=== PATIENT | female | born 1995 | race Hispanic/Latino ===

== ENCOUNTER 2018-09-16 01:27 | Inpatient (IN) | payer BC, SELFPAY ==
--- OUTSIDE RECORDS SUMMARY | 2018-09-16 01:29 | XMS REPORT ---
:1995 [facility] Address [address] [place] [address] Care Team Providers Name Role Phone Unavailable Unavailable Unavailable Payers Payer Name Policy Type Policy Number Effective Date Expiration Date Problems This patient has no known problems. Allergies, Adverse Reactions, Alerts Allergy Allergy Status Severity Reaction(s) Onset Inactive Treating Comments Name Type Date Date Clinician No Known DA Active U 2018-03 Allergies -15 00:00:0 0 No Known DA Active U 2018-02 Allergies - 00:00:0 0 No Known DA Active U 2018-02 Allergies - 00:00:0 0 Medications This patient has no known medications.
[2018-09-16] MEDS ORDERED: ONDANSETRON 4 MG/2 ML VIAL ONE (03:08)
[2018-09-16] MEDS ORDERED: KETOROLAC 30 MG/ML INJ ONE (03:08)
[2018-09-16] MEDS ORDERED: NA CHLORIDE 0.9% 1,000 ML ONE (03:08)
[2018-09-16] MEDS ORDERED: FAMOTIDINE 20 MG/2 ML VIAL IV ONE (03:08)
[2018-09-16 03:15] LABS: Absolute Lymphocytes (CBC) 0.9 K/uL (0.7-4.9); Absolute Monocytes 0.9 K/uL (0.1-1.3); Absolute Neutrophil 6.2 K/uL (1.8-8.0); Basophils % 0.3 % (0-1.3); Eosinophils % 6.4 % (0-4.4); Hematocrit 37.3 % (36.0-45.0); Lymphocytes % 10.3 % (15.3-44.8); MPV 9.1 fL (7.6-11.3); Monocytes % 10.3 % (3.3-12.3); RBC Red Blood Cell Count 4.14 M/uL (3.86-4.86)
[2018-09-16 03:27] LABS: ALT/SGPT 28 U/L (12-78); AST/SGOT 11 U/L (15-37); Albumin 4.1 g/dL (3.4-5.0); Alkaline Phosphatase 59 U/L (45-117); BUN Blood Urea Nitrogen 8 mg/dL (7-18); Bicarbonate 27 mmol/L (21-32); Bilirubin Direct < 0.1 mg/dL (0-0.2); Bilirubin Total 0.3 mg/dL (0.2-1.0); Glucose Level 103 mg/dL (74-106); Lipase 72 U/L (73-393); Potassium 3.4 mmol/L (3.5-5.1); Protein, Total 8.2 g/dL (6.4-8.2); Sodium Level 139 mmol/L (136-145)
[2018-09-16 06:28] LABS: Urine Bacteria 20-50 /HPF (<20); Urine Culture Reflex Order REFLEXED; Urine Mucus 1+ /HPF (NONE SEEN)
--- NOTE | 2018-09-16 07:57 | EDPHYS ---
Physician Documentation [facility] Name: Crystal Carrillo Age: 22 yrs Sex: Female : 1995 Arrival Date: 09/16/2018 Time: 01:28 Bed 5 Private MD: ED Physician Aldo Patterson HPI: 09/16 06:37 This 22 yrs old Female presents to ER via Ambulatory with complaints of Fever, wa Body Aches. 06:37 The patient reports fever, not measured (subjective). Onset: The symptoms/episode wa began/occurred 2 day(s) ago. Modifying factors: there are no obvious modifying factors. Associated signs and symptoms: Pertinent positives: abdominal pain, decreased appetite, vomiting, Pertinent negatives: cough, sore throat. Severity of symptoms: At their worst the symptoms were moderate in the emergency department the symptoms are unchanged. The patient has not experienced similar symptoms in the past. The patient has not recently seen a physician. 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 - Social history:: Smoking status: Patient/guardian denies using tobacco, Patient/guardian denies using alcohol, street drugs. - Ebola Screening: : Patient negative for fever greater than or equal to 101.5 degrees Fahrenheit, and additional compatible Ebola Virus Disease symptoms Patient denies exposure to infectious person Patient denies travel to an Ebola-affected area in the 21 days before illness onset. - Family history:: not pertinent. - Hospitalizations: : No recent hospitalization is reported. ROS: 06:38 Constitutional: Negative for fever, chills, and weight loss, Eyes: Negative for injury, wa pain, redness, and discharge, ENT: Negative for injury, pain, and discharge, Neck: Negative for injury, pain, and swelling, Cardiovascular: Negative for chest pain, palpitations, and edema, Respiratory: Negative for shortness of breath, cough, wheezing, and pleuritic chest pain, Back: Negative for injury and pain, : Negative for injury, bleeding, discharge, and swelling, MS/Extremity: Negative for injury and deformity, Skin: Negative for injury, rash, and discoloration, Neuro: Negative for headache, weakness, numbness, tingling, and seizure. 06:38 Constitutional: Positive for body aches, chills, fatigue, fever, Negative for weight loss. 06:38 Abdomen/GI: Positive for abdominal pain, vomiting, Negative for diarrhea. 06:38 All other systems are negative. Exam: 06:39 Constitutional: This is a well developed, well nourished patient who is awake, alert, wa and in no acute distress. Head/Face: Normocephalic, atraumatic. Eyes: Pupils equal round and reactive to light, extra-ocular motions intact. Lids and lashes normal. Conjunctiva and sclera are non-icteric and not injected. Cornea within normal limits. Periorbital areas with no swelling, redness, or edema. ENT: Nares patent. No nasal discharge, no septal abnormalities noted. Tympanic membranes are normal and external auditory canals are clear. Oropharynx with no redness, swelling, or masses, exudates, or evidence of obstruction, uvula midline. Mucous membranes moist. Neck: Trachea midline, no thyromegaly or masses palpated, and no cervical lymphadenopathy. Supple, full range of motion without nuchal rigidity, or vertebral point tenderness. No Meningismus. Chest/axilla: Normal chest wall appearance and motion. Nontender with no deformity. No lesions are appreciated. Cardiovascular: Regular rate and rhythm with a normal S1 and S2. No gallops, murmurs, or rubs. Normal PMI, no JVD. No pulse deficits. Respiratory: Lungs have equal breath sounds bilaterally, clear to auscultation and percussion. No rales, rhonchi or wheezes noted. No increased work of breathing, no retractions or nasal flaring. Back: No spinal tenderness. No costovertebral tenderness. Full range of motion. Skin: Warm, dry with normal turgor. Normal color with no rashes, no lesions, and no evidence of cellulitis. MS/ Extremity: Pulses equal, no cyanosis. Neurovascular intact. Full, normal range of motion. Neuro: Awake and alert, GCS 15, oriented to person, place, time, and situation. Cranial nerves II-XII grossly intact. Motor strength 5/5 in all extremities. Sensory grossly intact. Cerebellar exam normal. Normal gait. Psych: Awake, alert, with orientation to person, place and time. Behavior, mood, and affect are within normal limits. 06:39 Abdomen/GI: Inspection: abdomen appears normal, Bowel sounds: normal, Palpation: moderate abdominal tenderness, in the right lower quadrant. Vital Signs: 01:54 BP 118 / 87; Pulse 127; Resp 20; Temp 99.1(O); Pulse Ox 97% on R/A; Weight 58.97 kg fc (R); Height 5 ft. 0 in. (152.40 cm) (R); Pain 6/10; 03:40 BP 122 / 76; Pulse 91; Resp 18; Temp 99.5(O); Pulse Ox 97% ; Pain 6/10; eb1 04:52 BP 122 / 79; Pulse 97; Resp 20; Temp 99.1(O); Pulse Ox 98% on R/A; Pain 6/10; eb1 07:06 BP 104 / 71; Pulse 66; Resp 18; Temp 99.2(TE); Pulse Ox 100% on R/A; hj 01:54 Body Mass Index 25.39 (58.97 kg, 152.40 cm) MDM: 02:25 Patient medically screened. ny 06:39 Differential diagnosis: viral Infection, bacterial infection, UTI, r/o acute appy. Data ny reviewed: vital signs, nurses notes. 06:41 Test interpretation: by ED physician or midlevel provider: labs noted for low K. wa otherwise wnl.. 07:53 Test interpretation: by ED physician or midlevel provider: CT abd/pelvis: read as Right ny lower quadrant mesenteric adenitis. . Response to treatment: the patient's symptoms have markedly improved after treatment. ED course: will cover with abx and give close f/u . 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 spoke with surgeon Dr. Harris. advised obs admit. NPO. ny will see pt. 09/16 01:55 Order name: Flu; Complete Time: 02:38 09/16 01:55 Order name: Strep; Complete Time: 02:38 09/16 02:43 Order name: Basic Metabolic Panel; Complete Time: 06:41 ny 09/16 02:43 Order name: CBC with Diff; Complete Time: 06:41 ny 09/16 02:43 Order name: Hepatic Function; Complete Time: 06:41 ny 09/16 02:43 Order name: Lipase; Complete Time: 06:41 ny 09/16 02:43 Order name: Urine Microscopic Only; Complete Time: 06:40 ny 09/16 03:15 Order name: Throat Culture [facility] 09/16 06:16 Order name: Urine Dipstick--Ancillary (enter results) [facility] 09/16 06:16 Order name: Urine --Ancillary (enter results) [facility] 09/16 06:30 Order name: Urine Culture [facility] 09/16 08:17 Order name: Basic Metabolic Panel [facility] 09/16 08:17 Order name: Basic Metabolic Panel [facility] 09/16 08:17 Order name: Lipase [facility] 09/16 02:43 Order name: IV Saline Lock; Complete Time: 03:07 ny 09/16 02:43 Order name: Labs collected and sent; Complete Time: 03:02 ny 09/16 02:43 Order name: Urine Dipstick-Ancillary (obtain specimen); Complete Time: 05:40 ny 09/16 02:43 Order name: Urine Test (obtain specimen); Complete Time: 05:40 ny 09/16 05:41 Order name: CT Abd/Pelvis - W/Contrast: IV only 09/16 08:17 Order name: Lipase [facility] 09/16 08:17 Order name: Liver (Hepatic) Function [facility] 09/16 08:17 Order name: Liver (Hepatic) Function [facility] 09/16 08:18 Order name: NPO EDNC Administered Medications: 03:06 Drug: NS 0.9% 1000 ml Route: IV; Rate: 1 bolus; Site: left antecubital; mg2 04:46 Follow up: Rate change 999 ml/hr; IV Status: Completed infusion; IV Intake: 1000ml eb1 03:06 Drug: Zofran 4 mg Route: IVP; Site: left antecubital; mg2 03:42 Follow up: Response: No adverse reaction eb1 03:43 Follow up: Response: Nausea is decreased eb1 03:06 Drug: Pepcid 20 mg Route: IVP; Site: left antecubital; mg2 03:43 Follow up: Response: No adverse reaction eb1 03:06 Drug: TORadol 30 mg Route: IVP; Site: left antecubital; mg2 03:43 Follow up: Response: Pain is decreased eb1 07:53 Drug: fentaNYL (PF) 25 mcg Route: IVP; Site: left antecubital; hj 08:03 Follow up: Response: No adverse reaction; Pain is decreased hj 08:09 Drug: Zosyn 3.375 grams Route: IVPB; Infused Over: 60 mins; Site: left antecubital; hj 08:59 Follow up: Response: No adverse reaction; IV Status: Completed infusion aa5 08:59 Drug: D5-1/2 NS 1000 ml Route: IV; Rate: 125 ml/hr; Site: left antecubital; aa5 08:59 Follow up: IV Status: Infusion continued upon admission aa5 Disposition: 09/16/18 08:07 Hospitalization ordered by Dwight Harris for Observation. Preliminary diagnosis is Acute abdominal pain. - Bed requested for Telemetry/MedSurg (observation). - Status is Observation. eb - Condition is Stable. - Problem is new. - Symptoms have improved. UTI on Admission? No - Notes: take medication as prescribed. see your doctor for reassessment within 2 days. return here for rapidly worsening concerns Signatures: Dispatcher [employer] EDMS Beryl Head RN RN Zuleima Hoffman RN RN aa5 Bandar Hardy RN RN Aldo Patterson MD MD wa Botello, Elizabeth eb Gardose, Michele, RN RN [facility] Judith Middleton RN eb1 Corrections: (The following items were deleted from the chart) 07:57 07:56 09/16/2018 07:56 Discharged to Home. Impression: Acute abdominal pain; acutre wa vomiting and diarrhea; Nonspecific mesenteric lymphadenitis. Condition is Stable. Forms are Medication Reconciliation Form, Thank You Letter, Antibiotic Education, Prescription Opioid Use. Follow up: Aldo Juan; When: 2 - 3 days; Reason: Re-evaluation by your physician. Problem is new. Symptoms have improved. ny 08:02 07:57 09/16/2018 07:56 Discharged to Home. Impression: Acute abdominal pain; acute wa vomiting and diarrhea; Nonspecific mesenteric lymphadenitis. Condition is Stable. Forms are Medication Reconciliation Form, Thank You Letter, Antibiotic Education, Prescription Opioid Use. Follow up: Aldo Juan; When: 2 - 3 days; Reason: Re-evaluation by your physician. Problem is new. Symptoms have improved. ny 08:50 08:07 Hospitalization Ordered by Dwight Harris MD for Observation. Preliminary eb diagnosis is Acute abdominal pain. Bed requested for Telemetry/MedSurg (observation). Status is Observation. Condition is Stable. Problem is new. Symptoms have improved. UTI on Admission? No. ny 09:57 08:50 09/16/2018 08:07 Hospitalization Ordered by Dwight Harris MD for Observation. eb Preliminary diagnosis is Acute abdominal pain. Bed requested for Telemetry/MedSurg (observation). Status is Observation. Condition is Stable. Problem is new. Symptoms have improved. UTI on Admission? No. eb
--- NOTE | 2018-09-16 07:57 | ER ---
Nurse's Notes [facility] Name: Crystal Carrillo Age: 22 yrs Sex: Female : 1995 Arrival Date: 09/16/2018 Time: 01:28 Bed 5 Private MD: Diagnosis: Acute abdominal pain Presentation: 09/16 01:50 Presenting complaint: Patient states: that she is having a sore throat, body aches, fc nausea, vomiting and right ear pain. Started 2 days ago. Transition of care: patient was not received from another setting of care. Onset of symptoms was September 14, 2018. Risk Assessment: Do you want to hurt yourself or someone else? Patient reports no desire to harm self or others. Initial Sepsis Screen: Does the patient meet any 2 criteria? HR > 90 bpm. Yes Does the patient have a suspected source of infection? No. Patient's initial sepsis screen is negative. Care prior to arrival: Medication(s) given: Tylenol, at 1300 yesterday. 01:50 Method Of Arrival: Ambulatory fc 01:50 Acuity: TAURUS 3 fc Triage Assessment: 03:37 General: Behavior is calm, cooperative, appropriate for age. 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 - Social history:: Smoking status: Patient/guardian denies using tobacco, Patient/guardian denies using alcohol, street drugs. - Ebola Screening: : Patient negative for fever greater than or equal to 101.5 degrees Fahrenheit, and additional compatible Ebola Virus Disease symptoms Patient denies exposure to infectious person Patient denies travel to an Ebola-affected area in the 21 days before illness onset. - Family history:: not pertinent. - Hospitalizations: : No recent hospitalization is reported. Screenin:37 Abuse screen: Denies threats or abuse. Denies injuries from another. Nutritional eb1 screening: No deficits noted. Tuberculosis screening: No symptoms or risk factors identified. Fall Risk None identified. Assessment: 03:35 General: Appears in no apparent distress. uncomfortable, well groomed, well developed, eb1 well nourished, Reports feeling ill for 1-2 days. Pain: Complains of pain in abdomen. Neuro: No deficits noted. Cardiovascular: No deficits noted. Respiratory: No deficits noted. GI: Bowel sounds present X 4 quads. Abd is soft and non tender X 4 quads. Reports nausea. : No deficits noted. No signs and/or symptoms were reported regarding the genitourinary system. EENT: Reports sore throat . Derm: No deficits noted. No signs and/or symptoms reported regarding the dermatologic system. Musculoskeletal: No deficits noted. No signs and/or symptoms reported regarding the musculoskeletal system. 04:44 Reassessment: No changes from previously documented assessment. Patient and/or family eb1 updated on plan of care and expected duration. Pain level reassessed. Patient is alert, oriented x 3, equal unlabored respirations, skin warm/dry/pink. Pain:. 07:07 General: Appears in no apparent distress. uncomfortable, well groomed, well developed, hj well nourished, Reports feeling ill for. Pain: Complains of pain in right lower quadrant and abdomen. Neuro: Level of Consciousness is awake, alert, obeys commands, Oriented to person, place, time, situation, Appropriate for age. Cardiovascular: Capillary refill < 3 seconds Patient's skin is warm and dry. Respiratory: Airway is patent Respiratory effort is even, unlabored, Respiratory pattern is regular, symmetrical. GI: Bowel sounds present X 4 quads. Abd is soft and non tender X 4 quads. Reports nausea. : No signs and/or symptoms were reported regarding the genitourinary system. EENT: No signs and/or symptoms were reported regarding the EENT system. Derm: No signs and/or symptoms reported regarding the dermatologic system. Musculoskeletal: No signs and/or symptoms reported regarding the musculoskeletal system. 08:04 Reassessment: Patient and/or family updated on plan of care and expected duration. Pain hj level reassessed. Patient is alert, oriented x 3, equal unlabored respirations, skin warm/dry/pink. provider in room for POC: decided to admit pt, with surgery consult;. Vital Signs: 01:54 BP 118 / 87; Pulse 127; Resp 20; Temp 99.1(O); Pulse Ox 97% on R/A; Weight 58.97 kg fc (R); Height 5 ft. 0 in. (152.40 cm) (R); Pain 6/10; 03:40 BP 122 / 76; Pulse 91; Resp 18; Temp 99.5(O); Pulse Ox 97% ; Pain 6/10; eb1 04:52 BP 122 / 79; Pulse 97; Resp 20; Temp 99.1(O); Pulse Ox 98% on R/A; Pain 6/10; eb1 07:06 BP 104 / 71; Pulse 66; Resp 18; Temp 99.2(TE); Pulse Ox 100% on R/A; hj 01:54 Body Mass Index 25.39 (58.97 kg, 152.40 cm) ED Course: 01:28 Patient arrived in ED. am2 01:52 Triage completed. 01:54 Arm band placed on Patient placed in an exam room, on a stretcher. 02:25 Aldo Patterson MD is Attending Physician. ca 03:01 Initial lab(s) drawn, by me, sent to lab. Missed attempt(s): 22 gauge in right lt1 antecubital area. 03:08 No provider procedures requiring assistance completed. Inserted saline lock: 20 gauge mg2 in left antecubital area, using aseptic technique. Blood collected. 03:34 No apparent distress. eb1 03:38 Side rails up X2. eb1 04:44 No apparent distress. eb1 06:25 CT completed. Patient tolerated procedure well. Patient moved to CT via stretcher. Patient moved back from CT. 06:30 CT Abd/Pelvis - W/Contrast: IV only In Process Unspecified. EDMS 07:00 Bandar Hardy, SAIMA is Primary Nurse. 07:55 Aldo Juan MD is Referral Physician. ca 08:[address] Walters called and connected with Dr. Patterson for patient admission eb consultation. 08:07 Dwight Harris MD is Hospitalizing Provider. ca Administered Medications: 03:06 Drug: NS 0.9% 1000 ml Route: IV; Rate: 1 bolus; Site: left antecubital; mg2 04:46 Follow up: Rate change 999 ml/hr; IV Status: Completed infusion; IV Intake: 1000ml eb1 03:06 Drug: Zofran 4 mg Route: IVP; Site: left antecubital; mg2 03:42 Follow up: Response: No adverse reaction eb1 03:43 Follow up: Response: Nausea is decreased eb1 03:06 Drug: Pepcid 20 mg Route: IVP; Site: left antecubital; mg2 03:43 Follow up: Response: No adverse reaction eb1 03:06 Drug: TORadol 30 mg Route: IVP; Site: left antecubital; mg2 03:43 Follow up: Response: Pain is decreased eb1 07:53 Drug: fentaNYL (PF) 25 mcg Route: IVP; Site: left antecubital; hj 08:03 Follow up: Response: No adverse reaction; Pain is decreased hj 08:09 Drug: Zosyn 3.375 grams Route: IVPB; Infused Over: 60 mins; Site: left antecubital; hj 08:59 Follow up: Response: No adverse reaction; IV Status: Completed infusion aa5 08:59 Drug: D5-1/2 NS 1000 ml Route: IV; Rate: 125 ml/hr; Site: left antecubital; aa5 08:59 Follow up: IV Status: Infusion continued upon admission aa5 Intake: 04:46 IV: 1000ml; Total: 1000ml. eb1 Outcome: 07:56 Discharge ordered by . 08:07 Decision to Hospitalize by Provider. 09:57 Patient left the ED. eb Signatures: Dispatcher [employer] EDMS Christiano Nicole Felicia RN SAIMA Zuleima Hoffman RN RN aa5 Bandar Hardy RN RN hj Moreno, Amanda am2 Aldo Patterson MD MD wa Botello, Elizabeth eb Gardose, Michele RN RN mg2 Judith Middleton RN RN eb1 Mercedez Snow 1 Corrections: (The following items were deleted from the chart) 03:37 03:34 General: Appears in no apparent distress. uncomfortable, well groomed, well eb1 developed, well nourished, Behavior is calm, cooperative, appropriate for age, Reports eb1 03:40 03:38 Pulse 94bpm; Resp 18bpm; Pulse Ox 100%; Temp 98.9F Oral; Pain 3/10; eb1 eb1
[2018-09-16] MEDS ORDERED: FENTANYL CITR 100 MCG/2 ML ONE (08:12)
[2018-09-16] MEDS ORDERED: PIPER/TAZO/NS 3.375gm 3.375 GM/100 ML BAG ONE (08:24)
[2018-09-16 08:54] LABS: Urine Blood NEGATIVE (NEG); Urine Glucose NEGATIVE (NEG); Urine Protein TRACE (NEG); Urine Specific Gravity >1.030 (1.005-1.030); Urine pH 5.5 (5.0-7.0)
[2018-09-16] MEDS: D5 0.45 NS 1,000 ML IV SCH ×2 (10:28→17:00)
[2018-09-16] MEDS ORDERED: MORPHINE 4 MG/ML SYR IV PRN (12:13)
[2018-09-16] MEDS: ONDANSETRON 4 MG/2 ML VIAL IV PRN (13:12)
--- NOTE | 2018-09-16 15:30 | P.HP ---
Date of Service: 09/16/18 PC: This 22-year-old female was admitted to my service with a presumptive diagnosis of mesenteric adenitis. HPC: This patient, has had pain for the last 48 hr. Pain intensified and she came to the emergency room for evaluation. On workup CT scan was performed. I was called as she had severe right lower quadrant abdominal pain despite a normal white cell count with possible mesenteric adenitis. PMH: Negative PSHx: Denies any past surgical history SOC: LMP August 16, head-up O shots before but no longer receives them SYS REVIEW: No cough, wheeze, shortness of breath. Denies any chest pain or palpitations. No urinary complaints. Denies any vaginal discharge. O/E awake alert vital signs are stable HEENT: Not jaundiced Chest: Chest movement equal bilaterally ABD: Has some right lower quadrant tenderness but no true guarding or rebound no masses palpable GEN: I did not perform a pelvic examination LOCO: Intact DATA: White cell count normal, CT scan demonstrates a 4.5 cm right ovarian cyst IMPRESSION: Ovarian cyst PLAN: On further review of the CT scan with the radiologist it appears the patient has a large 4.5 cm right ovarian cyst. I will consult infectious waste technician.
--- NOTE | 2018-09-16 20:19 | RAD REPORT ---
EXAM DESCRIPTION: US - Transvaginal Study Probe - 09/16/2018 8:02 pm CLINICAL HISTORY: RLQ pain, r/o TOA Pelvic pain. COMPARISON: No comparisonsAbdomen Pelvis W Contrast dated 09/16/2018 FINDINGS: The uterus is normal in size, shape and echotexture. The uterus measures 7.1 x 4.4 x 3.7 c m. The endometrial stripe measures 10 mm, normal. Both ovaries are normal in size, shape and echotexture. The right ovary measures 5.5 x 4.6 x 4.3 cm. The left ovary measures 3.1 x 2.9 x 1.9 cm. 3.7 x 3.5 cm hemorrhagic right ovarian cyst. No adnexal masses. Normal Doppler blood flow was demonstrated to both ovaries. No significant pelvic ascites. IMPRESSION: 3.7 x 3.5 cm hemorrhagic right ovarian cyst.
[2018-09-16] MEDS ORDERED: NA CHLORIDE 0.9% 0 ML ONE (20:29)
[2018-09-16] MEDS ORDERED: CEFOXITIN/SWI 1gm 1 GM/10 ML SYR ONE ×2 (20:32→21:59)
--- NOTE | 2018-09-16 20:40 | P.OBGYNHP ---
Certification for Inpatient With expected LOS: <2 Midnights Patient will require the following post-hospital care: None Practitioner: I am a practitioner with admitting privileges, knowledge of patient current condition, hospital course, and medical plan of care. Services: Services provided to patient in accordance with Admission requirements found in Title 42 Section 412.3 of the Code of Federal Regulations Patient History Date of Service: 09/16/18 Reason for admission: abdominal pain, nausea, vomitting History of Present Illness: This is a 22 year old young woman who reports onset of RLQ pain starting 3 days ago with some mild nausea. Over the course of the last 3 days the pain became intolerable and her nausea and vomitting also were worse, so she came to the ER this morning. Labs and CT were done with mostly normal findings, WBC of 8.6 and 4.5cm cyst of the right ovary. She was admitted for pain control and hydration. She reports a history of similar pain and location when she was 16, menarche age 14. She was diagnosed at that time with ovarian cysts and put on oral contraception for suppression. She took those, then DMPA for some years, then 4 yrs ago was given Nexplanon implant since she was non-compliant with OCs and didn't tolerate DMPA well. SHe did well and had few periods, no pain, until the implant was removed after 3 years in January 2018. Since that time she has had irregular and heavy, long periods. She reports having dysmenorrhea for about 3-4 days before her cycle starts and 2 days into the period. Denies having pain in between periods. She is sex active with female partner only, same partner for 2 years, they are engaged. She does report some pain with vaginal penetration with sex toy at times, worse if close to the period. Allergies No Known Allergies Allergy (Unverified 04/05/17 23:05) Home medications list reviewed: Yes Home Medications: NK [No Home Meds] 09/16/18 - Past Medical/Surgical History Has patient received pneumonia vaccine in the past: No Diabetic: No Past Medical History: Reviewed- Non-Contributory -: tonsillectomy - Family History Father Notes: healthy parents Mother Notes: healthy parents - Social History Smoking Status: Never smoker Alcohol use: No CD- Drugs: No Caffeine use: No Place of Residence: Home Review of Systems Gastrointestinal: Nausea, Abdominal Pain, No Distention, As per HPI Physical Examination - Vital Signs Temperature: 98.2 F Blood Pressure: 84/54 Pulse: 93 Respirations: 19 Pulse Ox (%): 100 - General General: Alert and in no apparent distress, Oriented x3 HEENT: Atraumatic, PERRLA, Mucous membr. moist/pink, EOMI, Sclerae nonicteric Respiratory: Clear to auscultation bilaterally, Normal air movement Cardiovascular: Normal pulses, Regular rate/rhythm, Normal S1 S2 Gastrointestinal: Tenderness - Female Pelvic External genitalia: Normal Vagina: Normal Cervix: Other (+ CMT) Uterus: Mobile, Tender, Anteverted Adnexa: Tender, Enlarged (++ tender R>>L, right sided fullness) Laboratory Data (last 24 hrs) 09/16/18 03:00: WBC 8.6, Hgb 13.0, Hct 37.3, Plt Count 288 09/16/18 03:00: Sodium 139, Potassium 3.4 L, BUN 8, Creatinine 0.70, Glucose 103 , Total Bilirubin 0.3, AST 11 L, ALT 28, Alkaline Phosphatase 59, Lipase 72 L Microbiology Data (last 24 hrs): 09/16/18 01:53 Throat Group A Streptococcus Rapid Screen - Final 09/16/18 01:53 Nasopharnyx Influenza Type A Antigen Screen - Final 09/16/18 01:53 Nasopharnyx Influenza Type B Antigen Screen - Final Assessment and Plan - Problems (Diagnosis) (1) Pelvic inflammatory disease (PID) Current Visit: Yes Status: Acute - Plan PID vs TOA vs endometriosis. WBC 8.6, TVUS right ovarian hemorrhagic cyst 3.6cm. Pain and nausea not well controlled. Continue IV hydration, PO liquids as tolerated, Toradol 30mg IV q 6 hours, Zofran for nausea. IV antibiotics, change doxy to PO in the am for second dose. If tolerating PO intake in the morning will change to oral and discharge home. Discharge Plan: Home Plan to discharge in: 24 Hours - Advance Directives Does patient have a Living Will: No Does patient have a Durable POA for Healthcare: No - Code Status/Comfort Care Code Status Assessed: Yes Code Status: Full Code Critical Care: No Time Spent Managing Pts Care (In Minutes): 60
[2018-09-16] MEDS ORDERED: CEFOXITIN 2 GM in NA CHLORIDE 0.9% 100 ML IVPB SCH (21:00)
[2018-09-16] MEDS: DOXYCYCLINE 100 MG in NA CHLORIDE 0.9% 100 ML IVPB SCH (21:30)
[2018-09-16] MEDS ORDERED: DOXYCYCLINE HYCLATE 100MG INJ ONE (22:42)
[2018-09-16] MEDS ORDERED: AMPICILLIN/SULBACTAM 3GM/VIAL ONE (22:56)
[2018-09-16] MEDS ORDERED: NA CHLORIDE 0.9% 200 ML ONE (23:10)
[2018-09-16] MEDS: KETOROLAC 30 MG/ML INJ IV PRN (23:19)
[2018-09-17] MEDS: D5 0.45 NS 1,000 ML IV SCH ×4 (02:57→20:44)
[2018-09-17] MEDS: KETOROLAC 30 MG/ML INJ IV PRN ×4 (06:04→23:06)
[2018-09-17] MEDS ORDERED: AMPICILLIN/SULBACTAM 3GM/VIAL ONE (06:10)
[2018-09-17 06:14] LABS: Absolute Lymphocytes (CBC) 1.5 K/uL (0.7-4.9); Absolute Monocytes 0.6 K/uL (0.1-1.3); Basophils % 0.5 % (0-1.3); Eosinophils % 9.6 % (0-4.4); Hematocrit 34.1 % (36.0-45.0); Lymphocytes % 26.3 % (15.3-44.8); MPV 8.8 fL (7.6-11.3); Monocytes % 11.2 % (3.3-12.3); RBC Red Blood Cell Count 3.77 M/uL (3.86-4.86)
[2018-09-17] MEDS ORDERED: NA CHLORIDE 0.9% 100 ML ONE (06:16)
[2018-09-17 06:32] LABS: ALT/SGPT 37 U/L (12-78); AST/SGOT 29 U/L (15-37); Albumin 3.2 g/dL (3.4-5.0); Alkaline Phosphatase 49 U/L (45-117); BUN Blood Urea Nitrogen 3 mg/dL (7-18); Bicarbonate 26 mmol/L (21-32); Bilirubin Direct 0.1 mg/dL (0-0.2); Bilirubin Total 0.3 mg/dL (0.2-1.0); Glucose Level 105 mg/dL (74-106); Lipase 73 U/L (73-393); Potassium 3.5 mmol/L (3.5-5.1); Protein, Total 6.6 g/dL (6.4-8.2); Sodium Level 141 mmol/L (136-145)
[2018-09-17] MEDS: CEFOXITIN/SWI 2gm 2 GM/20 ML SYR IV SCH ×2 (08:04→20:35)
[2018-09-17] MEDS: DOXYCYCLINE 100 MG in NA CHLORIDE 0.9% 100 ML IVPB SCH ×2 (08:23→20:35)
[2018-09-17] MEDS: ONDANSETRON 4 MG/2 ML VIAL IV PRN (09:58)
[2018-09-17] MEDS: AMPICILLIN/SULBACT 3 GM in NA CHLORIDE 0.9% 100 ML IVPB SCH ×2 (11:47→17:11)
--- NOTE | 2018-09-17 19:26 | P.PN ---
Subjective Date of Service: 09/17/18 Chief Complaint: abdominal pain, nausea, vomitting Subjective: No new changes, Tolerating diet, Ambulating (no change in pain) Review of Systems General: Unremarkable Eyes: Unremarkable ENT: Unremarkable Respiratory: Unremarkable Cardiovascular: Unremarkable Gastrointestinal: Abdominal Pain Genitourinary: Unremarkable Musculoskeletal: Unremarkable Physical Examination - Vital Signs Temperature: 98.2 F Blood Pressure: 99/53 Pulse: 69 Respirations: 20 Pulse Ox (%): 95 - Physical Exam General: In no apparent distress, Oriented x3 HEENT: Atraumatic Neck: Supple Respiratory: Clear to auscultation bilaterally Cardiovascular: No edema, Regular rate/rhythm Gastrointestinal: Non-distended, W/out hepatosplenomegaly, Tenderness (RLQ w/o rebound) External genitalia: No edema, No lesions, Tenderness (right adnexal tenderness, no mass noted, min CMT) Rectal: Normal (hard stool in the rectum) - Studies Microbiology Data (last 24 hrs): 09/16/18 01:53 Throat Culture & Sensitivity - Final NORMAL UPPER RESPIRATORY SALVADOR GROWN. Assessment And Plan - Current Problems (Diagnosis) (1) Right lower quadrant pain Current Visit: Yes Status: Acute Plan: no acute abdomen emperic PIDrx given WBC normal pt not improved in 24h cont abx cefoxitina dn doxy had to be modified to unasyn for 2 doses since cefoxitin unavailable adn I was informed very late at night when our pharmacy was closed restarted ordered drugs this am (2) Right lower quadrant abdominal swelling, mass and lump Current Visit: Yes Status: Acute Plan: TVUS results reviewed complex Hemorrhagic vs endometrioma TOA very unlikely but possible therefore, waiting with iv abx GC sent again today since wrong swab used last night as floor resources unavailable to identify the GC swab to be used f/u results if pain unimproved in am, diag laparoscopy drainage or removal of right ovarian cyst possible endmetriosis removal as well however, prefer to do this electively if pain improves and pt can finish 2wk abx regimen and later decide on laparoscopy d/w Dr Harris, no surgical issues per him, will call him if needed in the OR (3) Constipation Current Visit: Yes Status: Acute Plan: hard stool in rectum rec MOM tonight if no improvement despite this, plan as above Plan to discharge in: 24 Hours - Code Status/Comfort Care Code Status: Full Code
[2018-09-17] MEDS: MAGNESIUM HYDROXIDE 8% 30 ML PO PRN ×2 (20:00→23:06)
[2018-09-17] MEDS: MORPHINE 2 MG/ML SYR IV PRN (20:35)
[2018-09-17] MEDS ORDERED: AMPICILLIN/SULBACT 3 GM in NA CHLORIDE 0.9% 100 ML IVPB SCH (23:00)
[2018-09-18] MEDS: D5 0.45 NS 1,000 ML IV SCH ×2 (00:08→08:46)
[2018-09-18] MEDS: MORPHINE 2 MG/ML SYR IV PRN ×2 (03:22→09:55)
[2018-09-18] MEDS: KETOROLAC 30 MG/ML INJ IV PRN (06:53)
[2018-09-18 07:17] LABS: Absolute Lymphocytes (CBC) 1.7 K/uL (0.7-4.9); Absolute Monocytes 0.5 K/uL (0.1-1.3); Absolute Neutrophil 2.7 K/uL (1.8-8.0); Basophils % 0.7 % (0-1.3); Eosinophils % 7.7 % (0-4.4); Hematocrit 34.4 % (36.0-45.0); Lymphocytes % 31.9 % (15.3-44.8); MPV 8.9 fL (7.6-11.3); Monocytes % 9.7 % (3.3-12.3)
[2018-09-18] MEDS: CEFOXITIN/SWI 2gm 2 GM/20 ML SYR IV SCH (08:45)
[2018-09-18] MEDS: DOXYCYCLINE 100 MG in NA CHLORIDE 0.9% 100 ML IVPB SCH (08:45)
[2018-09-18 11:02] VITALS: BMI 26.4
[2018-09-18] MEDS ORDERED: ROCURONIUM 50 MG/5 ML VIAL IV ONE (12:54)
[2018-09-18] MEDS ORDERED: PROPOFOL 200 MG/20 ML VIAL IV ONE (12:54)
[2018-09-18] MEDS ORDERED: Ringers Lactate 1,000 ML IV ONE (12:54)
[2018-09-18] MEDS ORDERED: FENTANYL CITR 100 MCG/2 ML ONE ×2 (12:54→14:23)
[2018-09-18] MEDS ORDERED: LIDOCAINE 2% MPF 5 ML VIAL ONE (12:55)
[2018-09-18] MEDS ORDERED: EPHEDRINE SULF 50 MG/ML VIAL ONE (14:05)
[2018-09-18] MEDS ORDERED: DEXAMETHASONE 10 MG/ML VIAL ONE (14:17)
[2018-09-18] MEDS ORDERED: KETOROLAC 30 MG/ML INJ ONE (14:17)
[2018-09-18] MEDS ORDERED: ONDANSETRON 4 MG/2 ML VIAL ONE ×2 (14:22→16:03)
[2018-09-18] MEDS ORDERED: GLYCOPYRROLATE 0.2 MG/ML SYR ONE (15:10)
[2018-09-18] MEDS ORDERED: NEOSTIGMINE 1 MG/ML -10 ML VIAL ONE (15:10)
--- NOTE | 2018-09-18 15:22 | P.BOP ---
Preoperative diagnosis: RLQ pain, ovarian cyst complex right Postoperative diagnosis: same, endometriosis Primary procedure: Diag laparoscopy Rt ovarian cystectomy and repair Estimated blood loss: 50 Specimen: rt hemorrhagic cyst Findings: endometriosis both lateral morocho, USLs; appy normal Complications: None Transferred to: Recovery Room Condition: Good
[2018-09-18] MEDS: HYDROMORPHONE HCL 2 MG/ML inj ONE ×4 (15:24→15:40)
[2018-09-18] MEDS: HYDROMORPHONE HCL 1 MG/ML INJ ONE ×2 (15:50→15:55)
[2018-09-18 16:16] VITALS: O2SAT 98
[2018-09-18] MEDS: ONDANSETRON 4 MG/2 ML VIAL IV PRN (20:33)
[2018-09-18] MEDS ORDERED: PROMETHAZINE 25 MG/ML VIAL IV ONE (22:17)
--- NOTE | 2018-09-19 01:50 | OP ---
Date of Procedure: 09/18/2018 Surgeon: Rae Leo MD Personnel Director: No assistants. Preoperative Diagnoses: Right lower quadrant pain, right complex ovarian cyst. Postoperative Diagnoses: Right lower quadrant pain, right complex ovarian cyst, and endometriosis. Procedures Performed: Diagnostic laparoscopy, right ovarian cystectomy, and repair of the ovary. Complications: No complications. Drains: No drains. Condition: Stable. Estimated Blood Loss: 50. Findings: Complex ovarian cyst embedded within the tissue of the ovary, which was mostly towards the opposite end of the ovary, to the insertion of the infundibulopelvic ligament, more towards the uter o-ovarian ligament. There was endometriosis found on the lateral morocho on both sides and the uterosa cral ligaments. The tubes on both sides, the left ovary were completely unremarkable as well as the uterus, appendix, gallbladder, liver, upper abdominal peritoneum, and omentum. Description Of Procedure: The patient was consented and taken back to the OR, placed in supine fashi on on the operating table. After general anesthesia was given, she was placed in a dorsal lithotomy position using Fito stirrups. Pelvic exam was performed. Uterus was found to be anteflexed. No ad nexal masses were noted. The abdomen, vulva, vagina, and perineum were prepped and draped in a steri le fashion. Johnson was placed to drain the bladder. VCare placed to the uterus for manipulation and this area was draped. A 1 cm infraumbilical incision was made with a scalpel using the open laparoscopy technique. Fascia was incised, tagged with 0 Vicryl sutures on both sides. The peritoneum entered bluntly. S retracto rs placed. Marta introduced. Site of entry was checked, unremarkable. Upper abdominal survey, low er abdominal survey was conducted with the scope. Upper abdominal exam completely unremarkable. Nathalie er, gallbladder, all surfaces unremarkable. The 5 mm suprapubic and left lower quadrant ports were placed under direct vision. The bowel was ret racted into the abdomen after placing the patient in T-jose. Thorough inspection was conducted. The right ovary was enlarged, appeared to have a deep cyst in the pole opposite to the infundibulopelvic ligament and more lateral. Endometriosis as dictated above. No other findings that were abnormal. Appendix normal. Bowel normal. Plan was to remove the right ovarian cyst because the patient's pain was mostly in the right lower qu adrant. Monopolar Storz needle was used to make a transverse incision on the ovary across the area o f the cyst. Incision was about 3 cm long. Careful dissection was performed to enter the capsule of the ovary without damaging the rest of the ovary getting onto the ovarian cyst. The wall was thicken ed. There was hemorrhagic tissue in there and dark hemorrhagic tissue as well more consistent with a n endometrioma. The entire cyst wall was carefully dissected and removed. The base of the ovary had to be slightly cauterized with bipolar medium tip. Then, the ovary was repaired with a 3-0 Vicryl o n a cutting needle with intracorporeal knots for hemostasis mostly, then thorough irrigation and suct ion were performed. The specimen was left in the anterior cul-de-sac. Once there was excellent hemo stasis and closure was good, Interceed was placed, wrapped around the ovary to prevent adhesions of t he raw area either to the lateral wall, posterior wall, bowel, or the tube. Then, trocars were remov ed under direct vision before the 10 camera was changed to a 5, and the lateral port used for vision while the specimen was retrieved through the umbilical trocar. The entire specimen was retrieved and handed out for permanent pathology. Then, the 5 camera was used through the 10 port and both 5 port s were removed. No evidence of any bleeding. Gas was desufflated through the Marta and Marta cristina derrick. Fascia closed with the tag sutures of 0 Vicryl, tied to each other. Simple 0 Vicryl suture in the subcutaneous plane, and two 4-0 Vicryl sutures interrupted for subcuticular closure. Another sut ure placed in each of the 5 mm ports with the same 4-0 Vicryl for closure and Steri-Strips placed eric rter-inch. Johnson and VCare were removed. Instrument, needle, and sponge counts were done and were c orrect at the end of the case. The patient tolerated the procedure well. She was recovered from ane sthesia and taken to the PACU in stable condition. EBL 50 mL. Our plan is to discharge her without any antibiotics. Follow up with me in the office in 1 week. She has been given prescriptions of Tyl enol with Codeine and ibuprofen. Plan is to place her on oral contraceptives for the long run and po ssible endometriosis excision at a later point in time. DEAN/GUANAKITO Voice ID: [id number] Report ID: [id number]
[2018-09-19 04:14] VITALS: BP 107/54; TEMP 97.9
--- NOTE | 2018-09-20 15:07 | RAD REPORT ---
EXAM DESCRIPTION: CT - Abdomen Pelvis W Contrast - 09/16/2018 7:10 am CLINICAL HISTORY: Abdominal pain. Nausea and vomiting for two days. Body aches and sore throat. COMPARISON: None. TECHNIQUE: Axial [address] imaging of the abdomen and pelvis performed utilizing intravenous contrast. Reformatted coronal and sagittal images reviewed. A dose reduction technique was utilized with automated exposure control according to patient size. FINDINGS: LOWER THORAX: Clear lung bases. Heart is upper normal in size. No pericardial fluid. ABDOMEN: LIVER/GALLBLADDER: Normal liver size and contour. Normal gallbladder. There is a hyperdense 1.3 cm s olid lesion within the anterior right lobe within segment eight which is isodense to the surrounding parenchyma on delayed axial images. SPLEEN/PANCREAS: Normal spleen. Normal pancreas. KIDNEYS/ADRENAL GLANDS: Normal adrenal glands. Normal right and left kidney. RETROPERITONEAL VESSELS/NODES: Normal aorta and inferior vena cava caliber. Circumaortic left renal vein. Mesenteric vessels appear well opacified. BOWEL: Normal stomach. Small bowel caliber is within normal limits. Appendix is not visualized. Norm al colon. MESENTERY/PERITONEUM: Mildly enlarged right lower quadrant lymph nodes up to 1.1 cm. No ascites or f ree air. PELVIS: BLADDER: Unremarkable bladder although not distended. GENITAL ORGANS: Normal uterus. There is a right ovarian 3.8 cm follicle. Left ovarian small follicle s are present. PERITONEUM: No pelvic free fluid or adenopathy. BONES AND SOFT TISSUES: Normal lumbosacral alignment. No subluxation. Intact bony pelvis. Normal hip s. IMPRESSION: 1. Right lower quadrant mesenteric adenitis. 2. 1.3 cm hyper dense enhancing mass within the right lobe of the liver in segment VIII. This may rep resent flash filling of a hemangioma or other mass lesion. Consider MRI abdomen with contrast the mounika racterize. Electronically signed by: Kailee Zamudio DO 09/16/2018 7:01 AM CDT Due to temporary technical issues with the PACS/Fluency reporting system, reports are being signed by the in house radiologist as a courtesy to ensure prompt reporting. The interpreting radiologist is f bipinly responsible for the content of the report.
== END 2018-09-19 07:30 | disposition home or self-care (01) | DRG 743 ==
LOC: ER 01:27 → OBSVTOIN 08:13 → INTOOBSV 08:13 → ERHOLD 08:13 → 2ND 09:39
PROVIDERS: ADMIT Surgery; ATTEND Surgery
PROC: 0UB04ZZ Excision of Right Ovary, Percutaneous Endoscopic Approach (ICD-10-PCS; principal; 2018-09-18 12:30)
DX: N83.201 Unspecified ovarian cyst, right side (principal); N80.8 Other endometriosis; K59.00 Constipation, unspecified
CPT/HCPCS: 36415; 74177; 76830; 80048; 80076; 81003; 81015; 81025; 83690; 85025; 87070; 87081; 87086; 87088; 87490; 87590; 87804; 88304; 88305; 96361; 96365; 96367; 96375; 99284; J0295; J0694; J1100; J1170; J2270; J2405; J2543; J2550; J2704; J2710; J3010; J7030; Q9967

== ENCOUNTER 2018-09-21 12:59 | Emergency (ER) | payer BC ==
--- OUTSIDE RECORDS SUMMARY | 2018-09-21 13:02 | XMS REPORT ---
:1995 [facility] Address [address] [place] [address] [address] [place] [address] Care Team Providers Name Role Phone Unavailable [...]
[2018-09-21] MEDS ORDERED: MORPHINE 4 MG/ML SYR ONE (13:28)
[2018-09-21] MEDS ORDERED: ONDANSETRON 4 MG/2 ML VIAL ONE (13:28)
[2018-09-21] MEDS ORDERED: NA CHLORIDE 0.9% 1,000 ML ONE (13:28)
[2018-09-21 13:38] LABS: Absolute Lymphocytes (CBC) 1.9 K/uL (0.7-4.9); Absolute Monocytes 0.5 K/uL (0.1-1.3); Basophils % 0.6 % (0-1.3); Eosinophils % 3.1 % (0-4.4); Hematocrit 37.8 % (36.0-45.0); Lymphocytes % 24.9 % (15.3-44.8); MPV 8.5 fL (7.6-11.3); Monocytes % 6.6 % (3.3-12.3); RBC Red Blood Cell Count 4.18 M/uL (3.86-4.86)
[2018-09-21 14:20] LABS: BUN Blood Urea Nitrogen 8 mg/dL (7-18); Bicarbonate 31 mmol/L (21-32); Glucose Level 88 mg/dL (74-106); Potassium 3.5 mmol/L (3.5-5.1); Sodium Level 142 mmol/L (136-145)
--- NOTE | 2018-09-21 15:26 | RAD REPORT ---
EXAM DESCRIPTION: CT - Abdomen Pelvis W Contrast - 09/21/2018 3:15 pm CLINICAL HISTORY: Abdominal pain, left lower quadrant pain, vomiting, surgery September 18 for ovarian cys t removal COMPARISON: None. TECHNIQUE: Biphasic, helical CT imaging of the abdomen and pelvis was performed following 100 ml non -ionic IV contrast. Oral contrast was given. All CT scans are performed using dose optimization technique as appropriate and may include automated exposure control or mA/KV adjustment according to patient size. FINDINGS: Bilateral posterior lung base atelectasis changes. No pericardial thickening or effusion. The liver, spleen, and pancreas show no suspicious findings. Gallbladder and biliary tree are also wi thout suspicious finding. Symmetric renal function is seen with no hydronephrosis or suspicious renal mass. No pyelonephritis o r acute parenchymal process. No bladder abnormalities. No adrenal abnormalities. Stomach is distended by the ingested oral contrast. No gastric wall thickening or mass. No dilated la rge or small bowel loops. Moderately large stool volume present throughout the colon. No appendicitis . Abnormal free air collection or pneumatosis. There is a solitary punctate focus of free air near th e urinary bladder. This is all believed be remnant from the recent surgery. This quantity is not abno rmal. No abscess is seen. No focal inflammatory stranding. Patient has a few small nonspecific right lower quadrant mesenteric lymph nodes. Trace amount of free fluid is seen in the cul de sac. Left ov radha is unremarkable. No suspicious right ovarian finding given the recent surgery. No fallopian tube dilatation. Minimal fat only umbilical hernia. No suspicious bony findings. IMPRESSION: Contrast-enhanced CT abdomen and pelvis imaging shows no suspicious or emergent finding. No abnormality to explain left lower quadrant pain. No abscess, abnormal free air or other suspicious finding related to recent surgery.
--- NOTE | 2018-09-21 15:32 | EDPHYS ---
Physician Documentation [facility] Name: Crystal Carrillo Age: 22 yrs Sex: Female : 1995 Arrival Date: 09/21/2018 Time: 13:02 Bed 8 Private MD: ED Physician Rickey Ontiveros HPI: 09/21 13:45 This 22 yrs old Female presents to ER via Ambulatory with complaints of kb Vomiting, Abdominal Pain. 13:49 The patient presents with abdominal pain that is diffuse, abdominal distention that is kb diffuse. Onset: The symptoms/episode began/occurred yesterday. The symptoms do not radiate. Associated signs and symptoms: Pertinent positives: nausea and vomiting, Pertinent negatives: anorexia, blood in stools, chest pain, constipation, diarrhea, dysuria, fever, headache, hematuria, nausea, palpitations, shortness of breath, vaginal discharge, vomiting blood. The symptoms are described as achy. Modifying factors: The symptoms are alleviated by nothing, the symptoms are aggravated by nothing. Severity of pain: At its worst the pain was moderate in the emergency department the pain is unchanged. The patient has not experienced similar symptoms in the past. The patient has not recently seen a physician. Pt reports she came in last week and was admitted. Had an ovarian cyst removed on 09/18/18. Vomiting started yesterday and she hasn't had a bm in a week. . 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 - Social history:: Smoking status: Patient/guardian denies using tobacco. - Ebola Screening: : No symptoms or risks identified at this time. ROS: 13:47 Constitutional: Negative for fever, chills, and weight loss, Cardiovascular: Negative kb for chest pain, palpitations, and edema, Respiratory: Negative for shortness of breath, cough, wheezing, and pleuritic chest pain, Back: Negative for injury and pain, : Negative for injury, bleeding, discharge, and swelling, MS/Extremity: Negative for injury and deformity, Skin: Negative for injury, rash, and discoloration, Neuro: Negative for headache, weakness, numbness, tingling, and seizure. 13:47 Abdomen/GI: Positive for abdominal pain, nausea and vomiting, constipation. Exam: 13:47 Constitutional: This is a well developed, well nourished patient who is awake, alert, kb and in no acute distress. Head/Face: Normocephalic, atraumatic. Chest/axilla: Normal chest wall appearance and motion. Nontender with no deformity. No lesions are appreciated. Cardiovascular: Regular rate and rhythm with a normal S1 and S2. No gallops, murmurs, or rubs. Normal PMI, no JVD. No pulse deficits. Respiratory: Lungs have equal breath sounds bilaterally, clear to auscultation and percussion. No rales, rhonchi or wheezes noted. No increased work of breathing, no retractions or nasal flaring. Back: No spinal tenderness. No costovertebral tenderness. Full range of motion. Skin: Warm, dry with normal turgor. Normal color with no rashes, no lesions, and no evidence of cellulitis. MS/ Extremity: Pulses equal, no cyanosis. Neurovascular intact. Full, normal range of motion. Neuro: Awake and alert, GCS 15, oriented to person, place, time, and situation. Cranial nerves II-XII grossly intact. Motor strength 5/5 in all extremities. Sensory grossly intact. Cerebellar exam normal. Normal gait. 13:47 Abdomen/GI: Inspection: distension, that is mild, in the abdomen diffusely, Bowel sounds: normal, in all quadrants, Palpation: moderate abdominal tenderness, in all quadrants. Vital Signs: 13:09 BP 126 / 79; Pulse 90; Resp 16 S; Temp 98.2(TE); Pulse Ox 96% on R/A; Weight 67.59 kg aa5 (R); Height 5 ft. 0 in. (152.40 cm) (R); Pain 7/10; 14:00 BP 110 / 74; Pulse 65; Resp 17; Pulse Ox 100% on R/A; tw2 14:50 BP 103 / 68; Pulse 63; Resp 17; Pulse Ox 99% on R/A; tw2 15:40 BP 106 / 72; Pulse 73; Resp 17; Pulse Ox 99% on R/A; tw2 16:45 BP 112 / 74; Pulse 69; Resp 17; Pulse Ox 100% on R/A; tw2 13:09 Body Mass Index 29.10 (67.59 kg, 152.40 cm) aa5 MDM: 13:10 Patient medically screened. kb 13:45 Data reviewed: vital signs, nurses notes. Data interpreted: Pulse oximetry: on room air kb is 96 %. Interpretation: normal. 15:30 Counseling: I had a detailed discussion with the patient and/or guardian regarding: the kb historical points, exam findings, and any diagnostic results supporting the discharge/admit diagnosis, lab results, radiology results, the need for outpatient follow up, an OB/Gyne specialist, to return to the emergency department if symptoms worsen or persist or if there are any questions or concerns that arise at home. 09/21 13:11 Order name: Basic Metabolic Panel; Complete Time: 14:22 kb 09/21 13:11 Order name: CBC with Diff; Complete Time: 13:44 kb 09/21 13:11 Order name: CT Abd/Pelvis - W/Contrast; Complete Time: 15:27 kb 09/21 13:11 Order name: IV Saline Lock; Complete Time: 13:32 kb 09/21 13:11 Order name: Labs collected and sent; Complete Time: 13:32 kb Administered Medications: 13:30 Drug: NS 0.9% 1000 ml Route: IV; Rate: 1000 ml; Site: right antecubital; sg 16:44 Follow up: Response: No adverse reaction; IV Status: Completed infusion; IV Intake: tw2 1000ml 13:30 Drug: Zofran 4 mg Route: IVP; Site: right antecubital; sg 16:44 Follow up: Response: No adverse reaction; Nausea is decreased tw2 13:33 Drug: morphine 4 mg Route: IVP; Site: right antecubital; sg 14:00 Follow up: Response: No adverse reaction; Pain is decreased tw2 Disposition: 17:38 Co-signature as Attending Physician, Rickey Ontiveros MD. rn Disposition: 09/21/18 15:31 Discharged to Home. Impression: Generalized abdominal pain, Vomiting, Constipation. - Condition is Stable. - Discharge Instructions: Constipation, Adult, Jysf-ko-Flsh, Abdominal Pain, Adult, Bzgo-fn-[id number]. - Prescriptions for Zofran 4 mg Oral Tablet - take 1 tablet by ORAL route every 6 hours As needed; 20 tablet. - Medication Reconciliation Form, Thank You Letter, Antibiotic Education, Prescription Opioid Use form. - Follow up: Emergency Department; When: As needed; Reason: Worsening of condition. Follow up: Private Physician; When: 2 - 3 days; Reason: Recheck today's complaints, Continuance of care, Re-evaluation by your physician. Follow up: Rae Leo MD; When: 2 - 3 days; Reason: Recheck today's complaints. Signatures: Dispatcher [employer] EDMS Cassi Gutierrez, MOTORCYCLE TESTER-C MOTORCYCLE TESTER-CkJuanpablo Schultz, RN RN Rickey Ashton MD MD rn Calderon, Audri, RN RN aa5 Trixie Rojas RN RN tw2 Corrections: (The following items were deleted from the chart) 15:31 15:31 09/21/2018 15:31 Discharged to Home. Impression: Generalized abdominal pain; kb Vomiting; Constipation. Condition is Stable. Forms are Medication Reconciliation Form, Thank You Letter, Antibiotic Education, Prescription Opioid Use. Follow up: Emergency Department; When: As needed; Reason: Worsening of condition. Follow up: Private Physician; When: 2 - 3 days; Reason: Recheck today's complaints, Continuance of care, Re-evaluation by your physician. kb 16:47 15:31 09/21/2018 15:31 Discharged to Home. Impression: Generalized abdominal pain; tw2 Vomiting; Constipation. Condition is Stable. Discharge Instructions: Constipation, Adult, Jlld-on-Zlph, Abdominal Pain, Adult, Xnvs-[id number]. Prescriptions for Zofran 4 mg Oral Tablet - take 1 tablet by ORAL route every 6 hours As needed; 20 tablet. and Forms are Medication Reconciliation Form, Thank You Letter, Antibiotic Education, Prescription Opioid Use. Follow up: Emergency Department; When: As needed; Reason: Worsening of condition. Follow up: Private Physician; When: 2 - 3 days; Reason: Recheck today's complaints, Continuance of care, Re-evaluation by your physician. Follow up: Rae Leo; When: 2 - 3 days; Reason: Recheck today's complaints. kb
--- NOTE | 2018-09-21 15:32 | ER ---
Nurse's Notes [facility] Name: Crystal Carrillo Age: 22 yrs Sex: Female : 1995 Arrival Date: 09/21/2018 Time: 13:02 Bed 8 Private MD: Diagnosis: Generalized abdominal pain;Vomiting;Constipation Presentation: 09/21 13:05 Presenting complaint: Patient states: vomiting that began last night. Pt also c/o pain aa5 to LLQ. Pt reports last BM was 1 week ago. Pt states "I had surgery on the to remove an ovarian cyst". Transition of care: patient was not received from another setting of care. 13:05 Method Of Arrival: Ambulatory aa5 13:05 Acuity: TAURUS 3 aa5 13:05 Onset of symptoms was September 2018. aa5 13:08 Risk Assessment: Do you want to hurt yourself or someone else? Patient reports no aa5 desire to harm self or others. Initial Sepsis Screen: Does the patient meet any 2 criteria? No. Patient's initial sepsis screen is negative. Does the patient have a suspected source of infection? No. Patient's initial sepsis screen is negative. Care prior to arrival: None. Triage Assessment: 13:59 General: Appears uncomfortable. GI: Reports lower abdominal pain. 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 - Social history:: Smoking status: Patient/guardian denies using tobacco. - Ebola Screening: : No symptoms or risks identified at this time. Screenin:58 Abuse screen: Denies threats or abuse. Nutritional screening: No deficits noted. tw2 Tuberculosis screening: No symptoms or risk factors identified. Fall Risk None identified. Assessment: 13:20 General: Appears uncomfortable, well groomed, well developed, well nourished, Behavior sg is calm, cooperative, appropriate for age. Pain: Complains of pain in left lower quadrant Quality of pain is described as sharp, stabbing. Neuro: Level of Consciousness is awake, alert, obeys commands, Speech is normal, Facial symmetry appears normal. Cardiovascular: Capillary refill is brisk in bilateral fingers Patient's skin is warm and dry. Chest pain is denied. Respiratory: Airway is patent Respiratory effort is even, unlabored, Respiratory pattern is regular, symmetrical. GI: Abdomen is round non-distended, Last BM was September 12, 2018. : No signs and/or symptoms were reported regarding the genitourinary system. EENT: No signs and/or symptoms were reported regarding the EENT system. Derm: Skin is intact, is healthy with good turgor, Skin is dry, Skin is normal, Skin temperature is warm. Musculoskeletal: Circulation, motion, and sensation intact. Range of motion: intact in all extremities, Swelling absent. 13:57 Reassessment: No changes from previously documented assessment. Patient and/or family tw2 updated on plan of care and expected duration. Pain level reassessed. Patient is alert, oriented x 3, equal unlabored respirations, skin warm/dry/pink. pt c/o pain, provider notified. Patient states symptoms have not improved. 14:51 Reassessment: No changes from previously documented assessment. Patient and/or family tw2 updated on plan of care and expected duration. Pain level reassessed. Patient is alert, oriented x 3, equal unlabored respirations, skin warm/dry/pink. 15:45 Reassessment: Patient and/or family updated on plan of care and expected duration. Pain tw2 level reassessed. Patient is alert, oriented x 3, equal unlabored respirations, skin warm/dry/pink. 16:45 Reassessment: Patient appears in no apparent distress at this time. No changes from tw2 previously documented assessment. Patient and/or family updated on plan of care and expected duration. Pain level reassessed. Patient is alert, oriented x 3, equal unlabored respirations, skin warm/dry/pink. Vital Signs: 13:09 BP 126 / 79; Pulse 90; Resp 16 S; Temp 98.2(TE); Pulse Ox 96% on R/A; Weight 67.59 kg aa5 (R); Height 5 ft. 0 in. (152.40 cm) (R); Pain 7/10; 14:00 BP 110 / 74; Pulse 65; Resp 17; Pulse Ox 100% on R/A; tw2 14:50 BP 103 / 68; Pulse 63; Resp 17; Pulse Ox 99% on R/A; tw2 15:40 BP 106 / 72; Pulse 73; Resp 17; Pulse Ox 99% on R/A; tw2 16:45 BP 112 / 74; Pulse 69; Resp 17; Pulse Ox 100% on R/A; tw2 13:09 Body Mass Index 29.10 (67.59 kg, 152.40 cm) aa5 ED Course: 13:02 Patient arrived in ED. mr 13:04 Cassi Gutierrez FNP-C [facility]. kb 13:04 Rickey Ontiveros MD is Attending Physician. kb 13:05 Arm band placed on. aa5 13:06 Triage completed. aa5 13:10 Bed in low position. Call light in reach. Pulse ox on. NIBP on. tw2 13:31 Juanpablo Juan, RN is Primary Nurse. sg 13:31 Initial lab(s) drawn, by az, sent to lab. Inserted saline lock: 22 gauge in right sg antecubital area, using aseptic technique. Blood collected. 15:[address] via wheelchair. vm2 15:16 CT Abd/Pelvis - W/Contrast In Process Unspecified. EDMS 15:31 Rae Leo MD is Referral Physician. kb 15:34 Awaiting: completion of IV fluids PRIOR to discharge. tw2 16:12 Assisted to bathroom. sg 16:46 No provider procedures requiring assistance completed. Patient did not have IV access tw2 during this emergency room visit. Administered Medications: 13:30 Drug: NS 0.9% 1000 ml Route: IV; Rate: 1000 ml; Site: right antecubital; sg 16:44 Follow up: Response: No adverse reaction; IV Status: Completed infusion; IV Intake: tw2 1000ml 13:30 Drug: Zofran 4 mg Route: IVP; Site: right antecubital; sg 16:44 Follow up: Response: No adverse reaction; Nausea is decreased tw2 13:33 Drug: morphine 4 mg Route: IVP; Site: right antecubital; sg 14:00 Follow up: Response: No adverse reaction; Pain is decreased tw2 Intake: 16:44 IV: 1000ml; Total: 1000ml. tw2 Outcome: 15:31 Discharge ordered by . kb 16:46 Discharged to home ambulatory, with significant other. tw2 16:46 Condition: stable 16:46 Discharge instructions given to patient, significant other, Instructed on discharge instructions, follow up and referral plans. medication usage, Demonstrated understanding of instructions, follow-up care, medications, Prescriptions given X 1. 16:47 Patient left the ED. tw2 Signatures: Dispatcher [employer] EDMS Cassi Gutierrez, ELECTRICIANS TOP HELPER-C ELECTRICIANS TOP HELPER-Juanpablo Santizo RN RN MaysJonna mr Dalton, SAIMA Dewey RN aa5 Trixie Rojas RN RN tw2 Rox Lomeli [facility] Corrections: (The following items were deleted from the chart) 13:09 13:05 Presenting complaint: Patient states: vomiting that began last night. Pt also c/o aa5 pain to LLQ. Pt reports last BM was 1 week ago. aa5
[2018-09-21 16:51] VITALS: TEMP 98.2
[2018-09-21 16:56] VITALS: BP 112/74; O2SAT 100
== END 2018-09-21 16:47 | disposition home or self-care (01) ==
LOC: ER 12:59
DX: K59.00 Constipation, unspecified (principal); R11.10 Vomiting, unspecified
CPT/HCPCS: 36415; 74177; 80048; 85025; 96361; 96374; 96375; 99284; J2405; J7030; Q9967

== ENCOUNTER 2018-12-23 12:11 | Day surgery (SDC) | payer BC ==
[2018-12-20 15:03] LABS: Urine Appearance CLEAR; Urine Bilirubin NEGATIVE (NEG); Urine Blood NEGATIVE (NEG); Urine Color YELLOW; Urine Glucose NEGATIVE (NEG); Urine Protein NEGATIVE (NEG); Urine Urobilinogen 0.2 mg/dL (0.2-1.0); Urine pH 5.5 (5.0-7.0)
[2018-12-20 15:06] LABS: Urine Microscopic Reflex ORDER UMIC
[2018-12-20 15:08] LABS: Basophils % 0.8 % (0-1.3); Hematocrit 37.6 % (36.0-45.0); Lymphocytes % 27.1 % (15.3-44.8); MPV 9.1 fL (7.6-11.3); RBC Red Blood Cell Count 4.17 M/uL (3.86-4.86)
[2018-12-20 15:14] LABS: Urine Bacteria 20-50 /HPF (<20); Urine Culture Reflex Order REFLEXED; Urine RBC NONE SEEN /HPF (NONE SEEN)
--- OUTSIDE RECORDS SUMMARY | 2018-12-23 12:13 | XMS REPORT ---
:1995 [facility] [address] [place] [address] Care Team Providers Name Role Phone Unavailable [...]
[2018-12-23] MEDS ORDERED: Ringers Lactate 1,000 ML IV ONE ×2 (12:29→17:33)
[2018-12-23] MEDS ORDERED: PROPOFOL 200 MG/20 ML VIAL IV ONE (12:43)
[2018-12-23] MEDS ORDERED: LIDOCAINE 2% MPF 5 ML VIAL ONE (12:43)
[2018-12-23] MEDS ORDERED: FENTANYL CITR 250 MCG/5 ML ONE ×2 (12:44→13:19)
[2018-12-23] MEDS ORDERED: ONDANSETRON 4 MG/2 ML VIAL ONE (12:45)
[2018-12-23] MEDS ORDERED: ROCURONIUM 50 MG/5 ML VIAL IV ONE (12:45)
[2018-12-23] MEDS ORDERED: MIDAZOLAM HCL 2 MG/2 ML INJ ONE (12:47)
[2018-12-23] MEDS ORDERED: GLYCOPYRROLATE 0.2 MG/ML SYR ONE ×2 (12:50→17:04)
[2018-12-23] MEDS ORDERED: SCOPOLAMINE HYDROBROMIDE PATCH TD ONE (12:53)
[2018-12-23] MEDS ORDERED: NA CHLORIDE 0.9% 1,000 ML ONE (14:05)
[2018-12-23] MEDS ORDERED: EPHEDRINE SULF 50 MG/ML VIAL ONE (14:23)
[2018-12-23] MEDS ORDERED: KETOROLAC 30 MG/ML INJ ONE ×2 (14:35→17:01)
[2018-12-23] MEDS ORDERED: NEOSTIGMINE 1 MG/ML -10 ML VIAL ONE (17:04)
[2018-12-23] MEDS: MEPERIDINE HCL 25 MG/0.5 ML ONE ×2 (17:26→17:34)
[2018-12-23] MEDS: MORPHINE 4 MG/ML SYR ONE ×5 (17:39→17:55)
[2018-12-23] MEDS: HYDROMORPHONE HCL 1 MG/ML INJ ONE ×4 (18:00→18:15)
[2018-12-23] MEDS ORDERED: PROMETHAZINE 25 MG/ML VIAL ONE (18:28)
[2018-12-23 18:56] VITALS: O2SAT 94
[2018-12-23] MEDS ORDERED: HYDROCODONE/APAP 5/325 MG TAB ONE (19:19)
[2018-12-23] MEDS ORDERED: NORCO 5/325mg (4 TAB for ER Dispense) PO ONE (19:26)
[2018-12-23 19:56] VITALS: BP 125/71; TEMP 97
--- NOTE | 2018-12-24 03:53 | OP ---
Date of Procedure: 12/23/2018 Surgeon: Rae Leo MD Quality Assurance Intern: Montserrat Cuevas. Preoperative Diagnoses: History of irregular bleeding, right lower quadrant pain, endometriosis. Postoperative Diagnoses: History of irregular bleeding, right lower quadrant pain, endometriosis, an d right ovarian adhesions. Procedures Performed: 1.Diagnostic hysteroscopy. 2.Diagnostic laparoscopy, endometriosis excision, left ureterolysis, and right oophorectomy. Anesthesia: General endotracheal. Estimated Blood Loss: 50. Specimens: Right ovary, left periureteric endometriosis, left and right uterosacral ligament endomet riosis. Complications: None. Drains: None. Findings: Patient with endometriosis of the bilateral uterosacral ligaments. The ureter on the righ t side was along the uterosacral ligament. There was endometriosis lateral to the ureter and superio r to the distal part of the pelvic ureter on the right side. On the left side, there was endometrios is around the ureter, especially right at the ureteric tunnel and on the uterosacral ligament as well . The right ovary that had been operated on for an ovarian cyst that was cleared up was completely s tuck with dense adhesions between the ureter and the lateral wall and the little Fito-Masters sinus that was formed most likely from endometriosis. This had to be completely removed from its place of adhesion. There was endometriosis in the posterolateral aspect of the ovary without removal of which I did not presume that the patient would be better, and therefore, the oophorectomy was performed. Endometriosis was excised mostly from the entire peritoneal cavity. There could be possibly some end ometriosis left in the area between the ureteric tunnel and the lateral wall, going down to the pelvi c lymph node region, pretty close to the obturator space. Other than this one particular area, rest of the endometriosis was completely excised. Indication: Patient is a 23-year-old who I came to know due to her ruptured ovarian cyst. She had a surgery for this where the cyst was removed. The ovary was preserved. She was put on oral contrace ptives. Her pain did not improve. Actually, her pain remained the same. Despite 3 months of observ ation with the oral contraceptives and ovulation suppression with them and great compliance on the pa nataliyant's part, the pain did not improve. So, patient came back for re-evaluation. We discussed about the endometriosis that was seen and diagnosed at the time of the last laparoscopy, which was unable to be excised due to all the hemoperitoneum that was present, so she was consented and brought to the OR. She also has history of irregular periods, which are now better with her pills. Description Of Procedure: The patient was consented and brought to the OR. She was placed in a supi ne fashion on the operating table. General anesthesia given. She was placed in a dorsal lithotomy p osition using Fito stirrups. Pelvic exam performed and abdomen, vulva, vagina, and perineum were pr epped and draped in a sterile fashion. Johnson was placed to drain the bladder. Speculum placed to ex pose the cervix. Anterior lip grasped with the Allis clamps. Diagnostic hysteroscopy with a TelloLin e hysteroscope, 30-degree lens, normal saline. Cavity unremarkable. Single cavity without any anoma lies. Both tubal ostia visualized. No intracavitary lesions or abnormalities in the endometrium. S cope was removed. Diagnostic VCare was introduced and fixed in place. After the bottom area was draped, 1 cm infraumbilical incision was made with the scalpel using the op en laparoscopy technique. The prior scar was excised. Fascia was incised, tagged with 0 Vicryl sutu res after it was cut. Peritoneum entered bluntly and S retractors placed. Marta introduced. Insuf flation was done. Site of entry was checked, unremarkable upper abdominal surfaces including the mary ellen phragmatic surfaces, liver, gallbladder are unremarkable. After the patient was placed in Trendelenb urg position, the anterior cul-de-sac was completely normal. Anterior broad ligament was normal. Po sterior cul-de-sac normal, both uterosacral ligaments and as findings were dictated above along the l eft periureteric area and the area between the ureter and the lateral wall distal to the tunnel on mary th sides. On the left side, there was endometriosis. On the right side, the ovary was completely st uck between the ureteric tunnel on the lateral wall, and so plan was to release the right ovary, exci se the endometriosis on both sides, possibly ureterolysis on the left. After other 3 ports were placed, a 5-mm right and left and suprapubic, then surgery was started. The ovary was dissected away with sharp dissection from its place of adhesion, and once this was release d, there was bleeding in a small amount; however, the peritoneal surface had hemorrhagic spots. It w as difficult to identify endometriosis here; however, the uterosacral ligament was very obvious to be embedded with endometriosis and so plan was to excise this. The peritoneum lateral to the ureter wa s opened up. The medial leaf of the peritoneum was picked up and the ureter dissected away laterally and the uterosacral endometriosis was excised without any problems all the way to the distal uterosa cral where it was inserted into the uterus. Once all the endo was removed, plan was to remove the ri ght ovary because there was a spot of endometriosis on the ovary itself near the uterine pole. This was difficult to be dissected with the ovary being intact and there was a second episode of her pain and second surgery for it in 3 months, so plan was to remove this. LigaSure was used to take down th e ovary without any problems and this was handed out for permanent pathology after placing it in a ba g. On the left side, the ureter and the peritoneum over the ureter was dissected just below the pelvic b rim and opened up all the way to the level of the ureteric tunnel, then the ureter was dissected medi ally from the pneumoperitoneum there on the medial leaf. Then, the endometriosis was excised on the medial leaf with a monopolar needle. Once all this was done, thorough irrigation and suction were pe rformed. The specimen bag was retrieved through the umbilical port. Gas was desufflated. All the t rocars were removed under direct vision without any problems. Then incisions closed with interrupted 4-0 Vicryl sutures and fascia at the umbilicus closed with 0 Vicryl in a [id number] fashion. S ubcutaneous tissues with simple 0 Vicryl stitch. Johnson and VCare were removed. Instrument, needle, and sponge counts correct and patient tolerated the procedure well. She was recovered from anesthesia in the OR and taken to PACU in stable condition. DEAN/GUANAKITO Voice ID: [id number] Report ID: [id number]
== END 2018-12-23 19:56 | disposition home or self-care (01) ==
LOC: OR 12:11
PROVIDERS: ATTEND Obstetrics & Gynecology
PROC: 0UB44ZZ Excision of Uterine Supporting Structure, Percutaneous Endoscopic Approach (ICD-10-PCS; 2018-12-23)
PROC: 0DBW4ZZ Excision of Peritoneum, Percutaneous Endoscopic Approach (ICD-10-PCS; 2018-12-23)
PROC: 0UB04ZZ Excision of Right Ovary, Percutaneous Endoscopic Approach (ICD-10-PCS; 2018-12-23)
PROC: 0TN74ZZ Release Left Ureter, Percutaneous Endoscopic Approach (ICD-10-PCS; 2018-12-23)
PROC: 0UJD8ZZ Inspection of Uterus and Cervix, Via Natural or Artificial Opening Endoscopic (ICD-10-PCS; principal; 2018-12-23 13:30)
DX: N93.9 Abnormal uterine and vaginal bleeding, unspecified (principal); N83.291 Other ovarian cyst, right side; N92.6 Irregular menstruation, unspecified; N80.3 Endometriosis of pelvic peritoneum; N73.6 Female pelvic peritoneal adhesions (postinfective); N80.8 Other endometriosis
CPT/HCPCS: 87088; 85025; 87086; 36415; 86900; 86850; 81025; 86901; 88305; 58555; 58662 ×2; 50949; J2704; J2710; J2550; J2250; J3010; J2175; J1170 ×2; J7030; J2405; 81003; 81015

== ENCOUNTER 2019-02-25 02:48 | Emergency (ER) | payer BC ==
[2019-02-25] MEDS ORDERED: NA CHLORIDE 0.9% 1,000 ML ONE (03:18)
[2019-02-25] MEDS ORDERED: ONDANSETRON 4 MG/2 ML VIAL ONE (03:18)
[2019-02-25 04:11] LABS: ALT/SGPT 31 U/L (12-78); AST/SGOT 21 U/L (15-37); Albumin 4.4 g/dL (3.4-5.0); Alkaline Phosphatase 60 U/L (45-117); BUN Blood Urea Nitrogen 14 mg/dL (7-18); Bicarbonate 27 mmol/L (21-32); Bilirubin Direct 0.1 mg/dL (0-0.2); Bilirubin Total 0.3 mg/dL (0.2-1.0); Glucose Level 114 mg/dL (74-106); Lipase 88 U/L (73-393); Potassium 3.9 mmol/L (3.5-5.1); Protein, Total 8.1 g/dL (6.4-8.2); Sodium Level 140 mmol/L (136-145)
[2019-02-25 04:22] LABS: Absolute Lymphocytes (CBC) 2.5 K/uL (0.7-4.9); Basophils % 0.9 % (0-1.3); Hematocrit 36.3 % (36.0-45.0); Lymphocytes % 30.8 % (15.3-44.8); MPV 9.2 fL (7.6-11.3); RBC Red Blood Cell Count 4.08 M/uL (3.86-4.86)
--- NOTE | 2019-02-25 04:53 | EDPHYS ---
Physician Documentation [facility] Name: Crystal Carrillo Age: 23 yrs Sex: Female : 1995 Arrival Date: 02/25/2019 Time: 02:50 Bed 19 Private MD: ED Physician Gm Adam HPI: 02/25 04:38 This 23 yrs old Female presents to ER via Ambulatory with complaints of gs Abdominal Pain. 04:38 The patient presents with abdominal pain in the left upper quadrant, in the left lower gs quadrant. Onset: The symptoms/episode began/occurred 1 week(s) ago. Associated signs and symptoms: Pertinent positives: vomiting. The symptoms are described as crampy. Modifying factors: The symptoms are alleviated by nothing, the symptoms are aggravated by nothing. Severity of pain: At its worst the pain was moderate in the emergency department the pain is unchanged. The patient has experienced similar episodes in the past, a few times. 04:42 The symptoms do not radiate. 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 - Social history:: Smoking status: Patient/guardian denies using tobacco. - Ebola Screening: : No symptoms or risks identified at this time. ROS: 04:42 All other systems are negative. gs Exam: 04:42 Head/Face: Normocephalic, atraumatic. Eyes: Pupils equal round and reactive to light, gs extra-ocular motions intact. Lids and lashes normal. Conjunctiva and sclera are non-icteric and not injected. Cornea within normal limits. Periorbital areas with no swelling, redness, or edema. ENT: Nares patent. No nasal discharge, no septal abnormalities noted. Tympanic membranes are normal and external auditory canals are clear. Oropharynx with no redness, swelling, or masses, exudates, or evidence of obstruction, uvula midline. Mucous membranes moist. Neck: Trachea midline, no thyromegaly or masses palpated, and no cervical lymphadenopathy. Supple, full range of motion without nuchal rigidity, or vertebral point tenderness. No Meningismus. Chest/axilla: Normal chest wall appearance and motion. Nontender with no deformity. No lesions are appreciated. Cardiovascular: Regular rate and rhythm with a normal S1 and S2. No gallops, murmurs, or rubs. Normal PMI, no JVD. No pulse deficits. Respiratory: Lungs have equal breath sounds bilaterally, clear to auscultation and percussion. No rales, rhonchi or wheezes noted. No increased work of breathing, no retractions or nasal flaring. Back: No spinal tenderness. No costovertebral tenderness. Full range of motion. Skin: Warm, dry with normal turgor. Normal color with no rashes, no lesions, and no evidence of cellulitis. MS/ Extremity: Pulses equal, no cyanosis. Neurovascular intact. Full, normal range of motion. Neuro: Awake and alert, GCS 15, oriented to person, place, time, and situation. Cranial nerves II-XII grossly intact. Motor strength 5/5 in all extremities. Sensory grossly intact. Cerebellar exam normal. Normal gait. 04:42 Constitutional: The patient appears in no acute distress, alert, awake. 04:42 Abdomen/GI: Palpation: mild abdominal tenderness, in the left upper quadrant and left lower quadrant. Vital Signs: 02:59 BP 114 / 80; Pulse 87; Resp 16; Temp 98.2; Pulse Ox 100% on R/A; Weight 63.5 kg (R); ak1 Height 5 ft. (152.40 cm) (R); Pain 7/10; 03:30 BP 103 / 68; Pulse 82; Resp 16 S; Pulse Ox 100% on R/A; cc3 04:15 BP 104 / 65; Pulse 87; Resp 16 S; Pulse Ox 100% on R/A; cc3 05:00 BP 107 / 73; Pulse 88; Resp 15 S; Pulse Ox 100% on R/A; Pain 0/10; cc3 02:59 Body Mass Index 27.34 (63.50 kg, 152.40 cm) ak1 MDM: 03:13 Patient medically screened. 04:42 Differential diagnosis: gastritis, non-specific abd pain, urinary tract infection. Data gs reviewed: vital signs, nurses notes, lab test result(s), radiologic studies. Counseling: I had a detailed discussion with the patient and/or guardian regarding: the historical points, exam findings, and any diagnostic results supporting the discharge/admit diagnosis, lab results, the need for outpatient follow up. Response to treatment: the patient's symptoms have markedly improved after treatment, the patient's condition has returned to base line, and as a result, I will discharge patient. 02/25 03:47 Order name: Basic Metabolic Panel; Complete Time: 04:35 EDMS 02/25 03:12 Order name: Urine Test (obtain specimen); Complete Time: 04:54 gs 02/25 03:12 Order name: Urine Dipstick-Ancillary (obtain specimen); Complete Time: 04:54 gs 02/25 03:47 Order name: Liver (Hepatic) Function; Complete Time: 04:35 EDMS 02/25 03:47 Order name: Lipase; Complete Time: 04:35 EDMS 02/25 03:47 Order name: CBC with Automated Diff; Complete Time: 04:35 EDMS 02/25 04:54 Order name: Urine Microscopic Only EDMS 02/25 03:12 Order name: IV Saline Lock; Complete Time: 03:42 gs 02/25 03:12 Order name: Labs collected and sent; Complete Time: 03:42 gs Administered Medications: 03:25 Drug: NS 0.9% 1000 ml Route: IV; Rate: 1 bolus; Site: left antecubital; cc3 04:30 Follow up: Response: No adverse reaction; IV Status: Completed infusion; IV Intake: cc3 1000ml 03:25 Drug: Zofran 4 mg Route: IVP; Site: right antecubital; cc3 04:00 Follow up: Response: No adverse reaction; Nausea is decreased cc3 Disposition: 02/25/19 04:52 Discharged to Home. Impression: Vomiting, Generalized abdominal pain. - Condition is Stable. - Discharge Instructions: Nausea and Vomiting, Adult. - Prescriptions for Pepcid 20 mg Oral Tablet - take 1 tablet by ORAL route every 12 hours for 10 days; 20 tablet. Zofran 4 mg Oral Tablet - take 1 tablet by ORAL route every 12 hours As needed; 6 tablet. - Medication Reconciliation Form, Thank You Letter, Antibiotic Education, Prescription Opioid Use, Family Work Release form. - Follow up: Private Physician; When: 1 - 2 days; Reason: Re-evaluation by your physician. Signatures: Dispatcher [employer] Gris Berry RN RN ak1 Gm Adam MD MD Elvia Byers cc3 Corrections: (The following items were deleted from the chart) 05:29 04:52 02/25/2019 04:52 Discharged to Home. Impression: Vomiting; Generalized abdominal cc3 pain. Condition is Stable. Forms are Medication Reconciliation Form, Thank You Letter, Antibiotic Education, Prescription Opioid Use. Follow up: Private Physician; When: 1 - 2 days; Reason: Re-evaluation by your physician. gs
--- NOTE | 2019-02-25 04:53 | ER ---
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 Transition of care: patient was not received from another setting of care. Onset of symptoms is unknown. Risk Assessment: Do you want to hurt yourself or someone else? Patient reports no desire to harm self or others. Initial Sepsis Screen: Does the patient meet any 2 criteria? No. Patient's initial sepsis screen is negative. Does the patient have a suspected source of infection? No. Patient's initial sepsis screen is negative. Care prior to arrival: None. 02:59 Method Of Arrival: Ambulatory ak1 02:59 Acuity: TAURUS 3 ak1 Triage Assessment: 03:01 General: Appears in no apparent distress. Behavior is calm, cooperative. 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 - Social history:: Smoking status: Patient/guardian denies using tobacco. - Ebola Screening: : No symptoms or risks identified at this time. Screenin:01 Abuse screen: Denies threats or abuse. Denies injuries from another. Nutritional ak1 screening: No deficits noted. Tuberculosis screening: No symptoms or risk factors identified. Fall Risk None identified. Assessment: 03:01 General: Appears in no apparent distress. comfortable, Behavior is calm, cooperative, cc3 appropriate for age. Pain: Complains of pain in left lower quadrant and left upper quadrant. Neuro: Level of Consciousness is awake, alert, obeys commands, Oriented to person, place, time, situation, Appropriate for age. Cardiovascular: Denies chest pain, Heart tones S1 S2 present Capillary refill < 3 seconds in bilateral fingers Patient's skin is warm and dry. Respiratory: Airway is patent Respiratory effort is even, unlabored, Respiratory pattern is regular, symmetrical, Breath sounds are clear bilaterally. GI: Abdomen is round non-distended, Bowel sounds present X 4 quads. Abd is soft and non tender X 4 quads. : No signs and/or symptoms were reported regarding the genitourinary system. EENT: No signs and/or symptoms were reported regarding the EENT system. Derm: Skin is intact, is healthy with good turgor, Skin is pink, warm \T\ dry. normal. Musculoskeletal: Circulation, motion, and sensation intact. Range of motion: intact in all extremities. 04:18 Reassessment: Patient appears in no apparent distress at this time. Patient and/or cc3 family updated on plan of care and expected duration. Pain level reassessed. Patient is alert, oriented x 3, equal unlabored respirations, skin warm/dry/pink. 05:15 Reassessment: Patient appears in no apparent distress at this time. Patient and/or cc3 family updated on plan of care and expected duration. Pain level reassessed. Patient is alert, oriented x 3, equal unlabored respirations, skin warm/dry/pink. Dr. Adam discharged the patient home with prescriptions given. IV cannula removed and patient left ER vitally stable and ambulatory with her brother. NO valuables left in the patient's room. Patient denies pain at this time. Patient states feeling better. Patient states symptoms have improved. Vital Signs: 02:59 BP 114 / 80; Pulse 87; Resp 16; Temp 98.2; Pulse Ox 100% on R/A; Weight 63.5 kg (R); ak1 Height 5 ft. (152.40 cm) (R); Pain 7/10; 03:30 BP 103 / 68; Pulse 82; Resp 16 S; Pulse Ox 100% on R/A; cc3 04:15 BP 104 / 65; Pulse 87; Resp 16 S; Pulse Ox 100% on R/A; cc3 05:00 BP 107 / 73; Pulse 88; Resp 15 S; Pulse Ox 100% on R/A; Pain 0/10; cc3 02:59 Body Mass Index 27.34 (63.50 kg, 152.40 cm) ak1 ED Course: 02:50 Patient arrived in ED. ag3 02:59 Arm band placed on Patient placed in an exam room, on a stretcher, Patient notified of ak1 wait time. 03:00 Triage completed. ak1 03:01 Elvia Byers is Primary Nurse. cc3 03:01 Patient has correct armband on for positive identification. Bed in low position. Call ak1 light in reach. Pulse ox on. NIBP on. 03:11 Gm Adam MD is Attending Physician. 03:25 Inserted saline lock: 20 gauge in left antecubital area, using aseptic technique. Blood cc3 collected. 05:15 No provider procedures requiring assistance completed. IV discontinued, intact, cc3 bleeding controlled, No redness/swelling at site. Pressure dressing applied. Administered Medications: 03:25 Drug: NS 0.9% 1000 ml Route: IV; Rate: 1 bolus; Site: left antecubital; cc3 04:30 Follow up: Response: No adverse reaction; IV Status: Completed infusion; IV Intake: cc3 1000ml 03:25 Drug: Zofran 4 mg Route: IVP; Site: right antecubital; cc3 04:00 Follow up: Response: No adverse reaction; Nausea is decreased cc3 Intake: 04:30 IV: 1000ml; Total: 1000ml. cc3 Outcome: 04:52 Discharge ordered by . 05:15 Discharged to home ambulatory, with family. cc3 05:15 Condition: stable 05:15 Discharge instructions given to patient, Instructed on discharge instructions, follow up and referral plans. medication usage, Demonstrated understanding of instructions, follow-up care, medications, Prescriptions given X 2. 05:29 Patient left the ED. cc3 Signatures: Gris Bob, RN RN ak1 Gm Adam MD MD Elvia Byers cc3 Sharona Reilly ag3
[2019-02-25 05:35] LABS: Urine Bacteria 20-50 /HPF (<20); Urine Culture Reflex Order REFLEXED; Urine RBC NONE SEEN /HPF (NONE SEEN)
[2019-02-25 05:36] LABS: Urine Mucus HEAVY /HPF (NONE SEEN)
[2019-02-25 05:48] VITALS: BP 114/80; TEMP 98.2; O2SAT 100
== END 2019-02-25 05:29 | disposition home or self-care (01) ==
LOC: ER 02:48
DX: R11.10 Vomiting, unspecified (principal)
CPT/HCPCS: 96361; 87088; 85025; 87086; 80048; 36415; 80076; 81015; 83690; 96374; 99284; J7030; J2405